=== PATIENT | female | born 1955 | race Two or more races ===

== ENCOUNTER 2017-09-30 00:31 | Emergency (ER) | payer OTHER ==
--- NOTE | 2017-09-30 01:10 | NUR ---
STATES "I JUST LOST MY SON 6 DAYS AGO AND JUST WANTED SOMETHING EMOTIONAL, WILL GO HOME AND STAY WITH MY FAMILY". DENIES ANY SX'S AT THIS TIME
== END 2017-09-30 01:25 | disposition left against medical advice (07) ==
LOC: ER 00:40
DX: R53.1 Weakness (principal); Z53.21 Procedure and treatment not carried out due to patient leaving prior to being seen by health care provider